=== PATIENT | female | born 1985 ===

== ENCOUNTER 2021-06-12 16:34 | Emergency (ER) | payer SELFPAY ==
[~2021-06-12] VITALS: Ht 162.6 cm; Wt 54.4 kg
[2021-06-12 17:16] LABS: Urine Bacteria FEW /hpf (None Seen); Urine Blood Negative /uL (Negative); Urine Mucus FEW (None Seen); Urine WBC 14 /hpf (0 - 5)
[2021-06-12 18:11] VITALS: BP 137/72
== END 2021-06-12 18:20 | disposition home or self-care (01) ==
LOC: ER 16:34
DX: N39.0 Urinary tract infection, site not specified (principal)
CPT/HCPCS: 81001